=== PATIENT | male | born 1960 | race Two or more races ===

== ENCOUNTER 2016-06-05 11:04 | Emergency (ER) | payer SELFPAY ==
[2016-06-05 11:39] VITALS: TEMP 98.1; BMI 28.8
--- NOTE | 2016-06-05 13:24 | EDPRACDOC ---
- General Information Chief Complaint: Cellulitis of Skin Stated Complaint: FOOT PAIN Time Seen by Provider: 06/05/16 13:21 Information Source: Patient, Pricer Mode Of Arrival: Car Home Medications: Home Medications Amoxicillin/Potassium Clav [Augmentin 875-125 Tablet] 1 tab PO .BID X 10D Glipizide 10 mg PO BID 06/05/16 Hydrocodone Bit/Acetaminophen [Hydrocodon-Acetaminophen 5-325] 1 tab PO Q4H PRN #15 tab 06/05/16 Ibuprofen 800 mg PO TID 06/05/16 Lisinopril 20 mg PO .QAFTERNOON 06/05/16 Lovastatin 20 mg PO .QAFTERNOON 06/05/16 Metformin HCl 1,000 mg PO BID 06/05/16 Sulfamethoxazole/Trimethoprim [Bactrim Ds Tablet] 1 tab PO BID #20 tab 06/05/16 Allergies/Adverse Reactions: Allergies Allergy/AdvReac Type Severity Reaction Status Date / Time No Known Allergies Allergy Verified 06/05/16 11:39 - History of Present Illness Onset: 10 days HPI: RIGHT FOOT REDNESS, SWELLING, PAIN FOR 10 DAYS. SENT FROM URGENT CARE FOR EVAL ALSO SEEN BY [facility]. NO FEVER. PAIN SOMETIMES A 02/07. CURRENTLY, ART DENIES TRAUMA. STARTED AUGMENTING MONDAY. MOTRIN ADDED MONDAY. ED Past Medical History - Patient Medical History Cardiac History: Reports: Hypertension EDM Review of Systems - Review of Systems ROS Negative Except as Marked: Yes All systems reviewed and were negative except as marked Constitutional: No Symptoms Reported Eyes: No Symptoms Reported Respiratory: No Symptoms Reported Cardiovascular: No Symptoms Reported Gastrointestinal: No Symptoms Reported Genitourinary: No Symptoms Reported - Physical Exam Constitutional: Alert (Awake), No apparent distress Oriented to: Time, Person, Place Last recorded Vital Signs: Last Vital Signs Temp 98.1 F 06/05/16 11:34 Pulse 83 06/05/16 11:34 Resp 20 06/05/16 11:34 BP 173/95 06/05/16 11:34 Pulse Ox 97 06/05/16 11:34 Oxygen Pulse Oxygen Saturation 97 O2 Device Oxygen Flow Rate Fraction of Inspired Oxygen ( FIO2) - HEENT Head: Normal ( normocephalic) Eye Exam: Normal (PERRL, EOMI, Sclera white) Oropharynx: Normal (Pharynx:Moist without exudate,Gums-no swelling) Nose: No Symptoms Reported (septum midline) Neck: Normal (FROM, trachea at midline) - Respiratory/Cardiovascular Respiratory: Normal - CTA (BBS clear to auscultation without adventitious sounds ) Cardiovascular: Normal (RRR without murmur, gallop or rub) - GI Auscultation: Normal (NABS) Palpation: Normal (Soft,No rebound or guarding, non distended) Tenderness: Non tender Meeks's Sign: Negative - Musculoskeletal Back: Normal (Non-Tender) Extremities: Normal (Normal tone, Pulses 2+ No cyanosis or edema, FROM) - Integumentary Skin: Normal, Warm, Dry, Other (REDNESS MID FOOD TO PLANTAR ASPECT. EDEMA. REDNESS DISTAL LATERAL FOOT WELL.) Lymphatics: Normal (no adenopathy) - Neurologic Memory Impaired: Normal Motor Function: Normal (Normal tone, Pulses 2+ No cyanosis or edema, FROM) Cranial Nerve: Normal (CN II-X11 intact sensation, strength 5/5) Cerebellar: Normal Mood Description: Normal Perception: Normal - Results 06/05/16 13:45 06/05/16 13:45 Decision Time to Discharge: 15:15 - Departure Yes I personally saw and evaluated the patient. Disposition: Home Condition: Stable Final Diagnosis: Cellulitis of right foot Instructions: Cellulitis (ED) Education/Counseling Given To: Patient, Family Member Education/Counseling Given Regarding: Diagnosis, Treatment, Prognosis, Follow Up Prescriptions: New Hydrocodone Bit/Acetaminophen [Hydrocodon-Acetaminophen 5-325] 1 tab PO Q4H PRN #15 tab PRN Reason: Pain Sulfamethoxazole/Trimethoprim [Bactrim Ds Tablet] 1 tab PO BID #20 tab No Action Lovastatin 20 mg PO .QAFTERNOON Lisinopril 20 mg PO .QAFTERNOON Metformin HCl 1,000 mg PO BID Ibuprofen 800 mg PO TID Glipizide 10 mg PO BID Amoxicillin/Potassium Clav [Augmentin 875-125 Tablet] 1 tab PO .BID X 10D Additional Instructions: RETURN TO ER MONDAY AFTERNOON IF NOT IMPROVING OR SOONER IF SYMPTOMS WORSENING.
[2016-06-05 13:53] LABS: AUTOMATED BASOPHIL 0.5 % (0-2); AUTOMATED EOSINOPHIL 3.7 % (0-5); AUTOMATED LYMPH 18.5 % (17-44); AUTOMATED MONOCYTE 11.3 % (3-10); MPV 6.8 fL (7.4-10.4)
[2016-06-05 14:12] LABS: BLOOD UREA NITROGEN 15 MG/DL (9-20); CALCIUM 9.5 MG/DL (8.4-10.2); CALCULATED OSMOLALITY 271 MOs/Kg (270-290); CHLORIDE 102 mEq/L (98-107); GLUCOSE 113 mg/dL (70-99); SODIUM LEVEL 140 mEq/L (137-146); TOTAL PROTEIN 8.3 G/DL (6.3-8.2)
--- NOTE | 2016-06-05 14:36 | DIRPT ---
CLINICAL DATA: Patient with foot pain and redness for 10 days. EXAM: RIGHT FOOT COMPLETE - 3+ VIEW COMPARISON: None. FINDINGS: Normal anatomic alignment. No evidence for acute fracture or dislocation. Soft tissue swelling about the foot. Posterior plantar calcaneal spurring. IMPRESSION: No acute osseous abnormality. Soft tissue swelling. Electronically Signed By: Luis Frazier M.D. On: 06/05/2016 14:33
[2016-06-05] MEDS ORDERED: TRIMETHOPRIM-SULFAMETHOXAZOLE TAB PO ONE (15:00)
[2016-06-05 15:38] VITALS: BP 158/78; PULSE 80
== END 2016-06-05 15:35 | disposition home or self-care (01) ==
LOC: ED 11:04
DX: L03.115 Cellulitis of right lower limb (principal)
CPT/HCPCS: 36415; 73630; 80053; 85025; 99282; J3490